=== PATIENT | male | born 1985 | race Caucasian/White ===

== ENCOUNTER 2024-02-28 04:35 | Day surgery (SDC) | payer BC ==
[2024-02-24 12:18] VITALS: BMI 31.0
[2024-02-28] MEDS ORDERED: MIDAZOLAM HCL 2 MG/2 ML SINGLE DOSE VIAL ONE (15:41)
[2024-02-28] MEDS ORDERED: FENTANYL CITRATE/PF 50 MCG/ML VIAL ONE (15:42)
[2024-02-28 16:18] VITALS: RESP 18; TEMP 97.7
[2024-02-28 17:01] VITALS: BP 130/76; PULSE 60
== END 2024-02-28 16:50 | disposition home or self-care (01) ==
LOC: JASU-SURG 04:35
PROVIDERS: ATTEND Urology
PROC: 0TF4XZZ Fragmentation in Left Kidney Pelvis, External Approach (ICD-10-PCS; principal; 2024-02-28 14:30)
DX: N20.0 Calculus of kidney (principal)

== ENCOUNTER 2024-06-13 04:31 | Day surgery (SDC) | payer BC ==
[2024-06-13 08:51] VITALS: BMI 31.7
[2024-06-13 09:40] VITALS: TEMP 98
[2024-06-13 09:54] VITALS: RESP 17
[2024-06-13 10:16] VITALS: BP 142/80; PULSE 60
== END 2024-06-13 10:33 | disposition home or self-care (01) ==
LOC: JASU-ENDO 04:31
PROVIDERS: ATTEND Internal Medicine Gastroenterology
PROC: 0DB78ZX Excision of Stomach, Pylorus, Via Natural or Artificial Opening Endoscopic, Diagnostic (ICD-10-PCS; 2024-06-13)
PROC: 0DB68ZX Excision of Stomach, Via Natural or Artificial Opening Endoscopic, Diagnostic (ICD-10-PCS; 2024-06-13)
PROC: 0DB98ZX Excision of Duodenum, Via Natural or Artificial Opening Endoscopic, Diagnostic (ICD-10-PCS; principal; 2024-06-13 09:30)
DX: K29.50 Unspecified chronic gastritis without bleeding (principal); B96.81 Helicobacter pylori [H. pylori] as the cause of diseases classified elsewhere
CPT/HCPCS: 88305-TC; 88341-TC; 88342-TC

== ENCOUNTER 2024-07-04 03:59 | Day surgery (SDC) | payer BC ==
[2024-06-30 10:48] VITALS: BMI 31.7
[2024-07-04] MEDS ORDERED: ONDANSETRON 4 MG/2 ML VIAL IVPUSH PRN (13:13)
[2024-07-04] MEDS ORDERED: LACTATED RINGERS SOLUTION 1,000 ML IV SCH (13:15)
[2024-07-04] MEDS: ceFAZolin SODIUM 1 GM VIAL IVPB ONE (13:50)
[2024-07-04] MEDS: BUPIVACAINE HCL/PF 0.25% (2.5MG/ML) 10 ML VIAL IJ ONE ×2 (14:05)
[2024-07-04 16:22] VITALS: RESP 18
[2024-07-04 18:07] VITALS: BP 122/64; PULSE 83; TEMP 97.3
== END 2024-07-04 18:00 | disposition home or self-care (01) ==
LOC: JASU-SURG 03:59
PROVIDERS: ATTEND Surgery
PROC: 8E0W4CZ Robotic Assisted Procedure of Trunk Region, Percutaneous Endoscopic Approach (ICD-10-PCS; 2024-07-04)
PROC: 0WUF4JZ Supplement Abdominal Wall with Synthetic Substitute, Percutaneous Endoscopic Approach (ICD-10-PCS; principal; 2024-07-04 13:00)
DX: K42.0 Umbilical hernia with obstruction, without gangrene (principal)
CPT/HCPCS: 49592; S2900; 86850; 86900; 86901; 94760; C1781